=== PATIENT | male | born 1985 | race African-American/Black ===

== ENCOUNTER 2018-08-01 15:10 | Emergency (ER) | payer SELFPAY ==
[2014-12-12 09:25] VITALS: BP 147/72
[2018-08-08 09:06] LABS: HDL 46 mg/dL (>40); eGFR (Non-African) > 60
[2018-08-08 09:07] LABS: BASOPHILS % 0.3 % (0.0-1.5)
== END 2018-08-01 16:39 ==
LOC: ED 15:10
DX: R00.2 Palpitations (principal)
CPT/HCPCS: 71020; 80053; 80061; 82550; 82553; 84484; 85025; 99281; 99282; S1016